=== PATIENT | male | born 1960 | race African-American/Black ===

== ENCOUNTER 2017-07-10 20:31 | Emergency (ER) | payer OTHER, MEDICAID ==
[~2017-07-10] VITALS: Ht 172.7 cm; Wt 105.2 kg
[2017-07-10 20:45] VITALS: Ht 172.7 cm; Wt 105.2 kg
[2017-07-11 00:45] VITALS: BP 106/55
== END 2017-07-11 00:45 | disposition home or self-care (01) ==
LOC: ED 20:31
DX: E11.610 Type 2 diabetes mellitus with diabetic neuropathic arthropathy (principal); I10 Essential (primary) hypertension
CPT/HCPCS: 82962; Q0092